=== PATIENT | male | born 1995 | race Caucasian/White ===

== ENCOUNTER 2020-06-28 16:55 | Observation (INO) ==
[2020-06-28 18:21] LABS: Basophils % 0.3 %; Eosinophils # 0.1 K/mcL (0.0-0.6); Eosinophils % 0.5 %; Hematocrit 41.6 % (37.5-50.1); Hemoglobin 12.9 g/dL (12.9-16.9); Immature Granulocytes % 0.3 % (0-4); Lymphocytes # 1.3 K/mcL (0.6-4.6); Lymphocytes % 10.2 %; Mean Corpuscular Hemoglobin 26.5 pg (28.0-33.3); Mean Corpuscular Volume 85.4 fL (83.0-100.0); Mean Platelet Volume 9.4 fL (9.4-12.4); Monocytes # 0.5 K/mcL (0.0-1.3); Neutrophils # 10.8 K/mcL (1.6-8.9); Platelet Count 310 K/mcL (140-400); Red Blood Count 4.87 M/mcL (4.19-5.50); Red Cell Distribution Width 12.9 % (11.5-14.5); Segmented Neutrophils % 84.7 %; White Blood Count 12.8 K/mcL (4.3-11.1)
[2020-06-28 18:24] LABS: Prothrombin Time 11.9 Seconds (9.4-12.1)
[2020-06-28 18:41] LABS: BUN/Creatinine Ratio 15 (6-26); Blood Urea Nitrogen 12 mg/dL (6-20); Calcium 8.8 mg/dL (8.6-10.3); Carbon Dioxide 29 mEq/L (23-29); Chloride 101 mEq/L (98-107); Glucose 133 mg/dL (70-105); Osmolality,Calculated 286 (280-300); Potassium 3.9 mEq/L (3.5-5.1); Sodium 137 mEq/L (136-145); eGFR For African Americans > 60 (> 60); eGFR For Non-African Americans > 60 (> 60)
[2020-06-28 18:42] LABS: Troponin I < 0.03 ng/mL (< 0.04)
[2020-06-28 21:11] LABS: Adenovirus Not Detected (Not Detect); Bordetella Pertussis Not Detected (Not Detect); Chlamydophila pneumoniae Not Detected (Not Detect); Coronavirus 229E Not Detected (Not Detect); Coronavirus HKU1 Not Detected (Not Detect); Coronavirus NL63 Not Detected (Not Detect); Coronavirus OC43 Not Detected (Not Detect); Human Metapneumovirus Not Detected (Not Detect); Human Rhinovirus/Enterovirus Not Detected (Not Detect); Influenza A Subtype 2009 H1 Not Detected (Not Detect); Influenza B Not Detected (Not Detect); Mycoplasma pneumoniae Not Detected (Not Detect); Parainfluenza Virus 1 Not Detected (Not Detect); Parainfluenza Virus 2 Not Detected (Not Detect); Parainfluenza Virus 3 Not Detected (Not Detect); Parainfluenza Virus 4 Not Detected (Not Detect); Respiratory Syncytial Virus Not Detected (Not Detect); SARS-CoV-2 Not Detected (Not Detect)
[2020-06-28] MEDS ORDERED: Lidocaine -MPF 2% 2 ML VIAL ONE (21:36)
[2020-06-28] MEDS ORDERED: *HR* Propofol 200 MG/20 ML VIAL IVP ONE ×2 (21:36→22:08)
[2020-06-28] MEDS ORDERED: Albuterol 2.5 MG/3 ML NEBULIZER IH ONE (22:22)
[2020-06-28] MEDS ORDERED: Ondansetron 4 MG/2 ML VIAL IVP ONE (22:22)
[2020-06-28] MEDS ORDERED: Albuterol 2.5 MG/3 ML NEBULIZER ONE (22:23)
[2020-06-28] MEDS ORDERED: Ondansetron 4 MG/2 ML VIAL ONE (22:23)
[2020-06-28] MEDS ORDERED: Dexamethasone 4 MG/ML VIAL ONE (22:23)
[2020-06-28] MEDS ORDERED: Dexamethasone 4 MG/ML VIAL IVP ONE (22:28)
[2020-06-28] MEDS ORDERED: Albuterol 2.5 MG/3 ML NEBULIZER IH PRN (22:50)
[2020-06-29] MEDS ORDERED: Pantoprazole 40 MG VIAL IVP SCH (06:00)
[2020-06-29 07:25] VITALS: BP 131/82
[2020-06-29 07:45] LABS: Mean Platelet Volume 9.7 fL (9.4-12.4); Red Cell Distribution Width 13.2 % (11.5-14.5)
[2020-06-29 07:46] LABS: Hematocrit 41.3 % (37.5-50.1); Hemoglobin 13.2 g/dL (12.9-16.9); Mean Corpuscular Hemoglobin 27.1 pg (28.0-33.3); Mean Corpuscular Volume 84.8 fL (83.0-100.0); Platelet Count 335 K/mcL (140-400); Red Blood Count 4.87 M/mcL (4.19-5.50); White Blood Count 25.7 K/mcL (4.3-11.1)
[2020-06-29 07:50] LABS: BUN/Creatinine Ratio 12 (6-26); Blood Urea Nitrogen 10 mg/dL (6-20); Carbon Dioxide 25 mEq/L (23-29); Chloride 103 mEq/L (98-107); Glucose 150 mg/dL (70-105); Osmolality,Calculated 286 (280-300); Sodium 137 mEq/L (136-145); eGFR For African Americans > 60 (> 60); eGFR For Non-African Americans > 60 (> 60)
[2020-06-29] MEDS ORDERED: Piperacillin/Tazobactam 3.375 GM in 0.9 % Sodium Chloride Mini Bag 100 ML IVPB SCH (08:00)
[2020-06-29] MEDS ORDERED: Ipratropium/Albuterol Neb 3 ML IH ONE (09:35)
== END 2020-06-29 12:02 | disposition home or self-care (01) ==
LOC: EMEROOARM 16:55 → 3BNU 16:55
PROVIDERS: ADMIT Internal Medicine; ATTEND Internal Medicine
PROC: ENDOEBX (2020-06-28 21:30)